=== PATIENT | male | born 1955 | race American Indian/Alaskan Native ===

== ENCOUNTER 2016-12-14 07:58 | Day surgery (SDC) | payer MEDICARE ==
[2016-12-14 08:54] LABS: Hematocrit 34.7 % (35.5-45.6); Hemoglobin 11.7 gm/dl (11.8-15.2); Mean Corpuscular HGB Conc 34 % (32-34); Mean Corpuscular Hemoglobin 29 pg (28-32); Mean Corpuscular Volume 86 fl (84-94); Platelet Count 317 K/mm3 (140-440); Red Blood Count 4.06 M/mm3 (3.65-5.03); Red Cell Distribution Width 14.6 % (13.2-15.2); White Blood Count 6.1 K/mm3 (4.5-11.0)
[2016-12-14 09:05] LABS: BUN/Creatinine Ratio 10.45; Calcium 7.9 mg/dL (8.4-10.2); Chloride 106.7 mmol/L (98-107); Potassium 4.2 mmol/L (3.6-5.0)
[2016-12-14 09:25] LABS: INR 1.04 (0.87-1.13); Partial Thromboplastin Time 32.9 Sec. (24.2-36.6)
[2016-12-14] MEDS ORDERED: SUBLIMAZE IV ONE (09:26)
[2016-12-14] MEDS ORDERED: VERSED IV ONE (09:26)
--- NOTE | 2016-12-14 10:56 | Short Stay Summary ---
Short Stay Documentation Date of service: 12/14/16 - History Principal diagnosis: Nephrotic syndrome Past Medical History: hypertension - Allergies and Medications Current Medications: Allergies No Known Allergies Allergy (Verified 08/15/15 05:03) Home Medications Medication Instructions Recorded Confirmed Last Taken Type Furosemide [Lasix TAB] 80 mg PO DAILY 12/14/16 12/14/16 12/14/16 History Metoprolol [Lopressor TAB] 25 mg PO BID 12/14/16 12/14/16 12/14/16 History Simvastatin [Zocor TAB] 20 mg PO QHS 12/14/16 12/14/16 12/14/16 History amLODIPine [Norvasc] 10 mg PO DAILY 12/14/16 12/14/16 12/14/16 History - Physical exam General appearance: no acute distress - Brief post op/procedure progress note Date of procedure: 12/14/16 Pre-op diagnosis: Nephrotic syndrome Post-op diagnosis: same Anesthesia: local Surgeon: RANI WALKER Estimated blood loss: none Specimen disposition: to lab Condition: stable - Disposition Condition at discharge: Good Disposition: DISCHARGED TO HOME OR SELFCARE Short Stay Discharge Plan Follow up with: JOHN PAUL CACERES MD [Primary Care Provider] - 7 Days
--- NOTE | 2016-12-14 12:14 | Cat Scan Report ---
CT-GUIDED BIOPSY OF THE RIGHT KIDNEY: HISTORY: Nephrotic syndrome. PROCEDURE: The patient was placed in the prone position. The skin surface overlying the right flank was prepped and draped using sterile technique. Local anesthetic was injected into the skin. Using CT guidance, a 17-gauge sheath needle was advanced into the lower pole cortex of the right kidney. 2 passes were made using an 18-gauge biopsy gun. Adequate tissue cores were obtained. Intravenous conscious sedation was used. Independent cardiorespiratory monitoring was performed by the outpatient procedure nurse for 10 minutes, supervised by me. Postbiopsy images demonstrate no evidence of significant hemorrhage. The patient was sent to the outpatient procedure unit to be observed for 8 hours with complete bed rest.
[2016-12-14 16:57] VITALS: BP 144/87
== END 2016-12-14 17:10 | disposition home or self-care (01) ==
LOC: OPU 07:58 → EDSTATUS 08:30 → OPU 17:10
PROVIDERS: ATTEND Internal Medicine Nephrology
DX: N04.9 Nephrotic syndrome with unspecified morphologic changes (principal); I10 Essential (primary) hypertension; E78.5 Hyperlipidemia, unspecified; M06.9 Rheumatoid arthritis, unspecified; Z87.891 Personal history of nicotine dependence; Z72.89 Other problems related to lifestyle; Z79.899 Other long term (current) drug therapy
CPT/HCPCS: 36415; 50200; 77012; 80048; 85027; 85610; 85730; J2250; J3010

== ENCOUNTER 2017-09-22 08:26 | Outpatient (CLI) | payer MEDICARE ==
[2017-09-22 08:41] LABS: Bilirubin,Urine NEG (Negative); Blood,Urine NEG (Negative); Ketones,Urine NEG (Negative); Leukocyte Esterase,Urine NEG (Negative); Nitrite,Urine NEG (Negative); Urobilinogen,Urine < 2.0 mg/dL (<2.0)
[2017-09-22 08:47] LABS: Protein,Urine >500 mg/dL (Negative)
[2017-09-22 08:52] LABS: Calcium 7.2 mg/dL (8.4-10.2); Chloride 107.9 mmol/L (98-107); Potassium 4.2 mmol/L (3.6-5.0)
== END 2017-09-22 08:27 | disposition home or self-care (01) ==
LOC: LAB 08:26
PROVIDERS: ATTEND Internal Medicine Nephrology
DX: I12.9 Hypertensive chronic kidney disease with stage 1 through stage 4 chronic kidney disease, or unspecified chronic kidney disease (principal); N18.4 Chronic kidney disease, stage 4 (severe)
CPT/HCPCS: 36415; 80048; 81001; 82570; 84156

== ENCOUNTER 2018-02-16 09:22 | Outpatient (CLI) | payer MEDICARE ==
[2018-02-16 09:43] LABS: Bilirubin,Urine NEG (Negative); Blood,Urine NEG (Negative); Color,Urine Straw (Yellow); Urobilinogen,Urine < 2.0 mg/dL (<2.0)
[2018-02-16 09:45] LABS: Hematocrit 33.5 % (35.5-45.6); Hemoglobin 11.3 gm/dl (11.8-15.2); Mean Corpuscular HGB Conc 34 % (32-34); Mean Corpuscular Hemoglobin 30 pg (28-32); Mean Corpuscular Volume 88 fl (84-94); Platelet Count 207 K/mm3 (140-440); Red Blood Count 3.82 M/mm3 (3.65-5.03); Red Cell Distribution Width 13.5 % (13.2-15.2)
[2018-02-16 10:09] LABS: Albumin 3.1 g/dL (3.9-5); Calcium 8.2 mg/dL (8.4-10.2); Chol/HDL Ratio 2.53 %
== END 2018-02-16 09:23 | disposition home or self-care (01) ==
LOC: LAB 09:22
PROVIDERS: ATTEND Internal Medicine
DX: I12.9 Hypertensive chronic kidney disease with stage 1 through stage 4 chronic kidney disease, or unspecified chronic kidney disease (principal); N18.4 Chronic kidney disease, stage 4 (severe); E11.22 Type 2 diabetes mellitus with diabetic chronic kidney disease; E11.65 Type 2 diabetes mellitus with hyperglycemia; E78.2 Mixed hyperlipidemia; E55.9 Vitamin D deficiency, unspecified; N40.1 Benign prostatic hyperplasia with lower urinary tract symptoms; R53.83 Other fatigue; Z87.891 Personal history of nicotine dependence
CPT/HCPCS: 36415; 80053; 80061; 80197; 81001; 82306; 83036; 84100; 84443; 85027; 86592

== ENCOUNTER 2018-04-24 09:26 | Outpatient (CLI) | payer MEDICARE ==
[2018-04-24 10:17] LABS: Albumin 3.3 g/dL (3.9-5); Calcium 8.8 mg/dL (8.4-10.2)
== END 2018-04-24 09:27 | disposition home or self-care (01) ==
LOC: LAB 09:26
PROVIDERS: ATTEND Internal Medicine Nephrology
DX: I12.9 Hypertensive chronic kidney disease with stage 1 through stage 4 chronic kidney disease, or unspecified chronic kidney disease (principal); E11.22 Type 2 diabetes mellitus with diabetic chronic kidney disease; N18.4 Chronic kidney disease, stage 4 (severe); E11.65 Type 2 diabetes mellitus with hyperglycemia; E78.2 Mixed hyperlipidemia; E78.00 Pure hypercholesterolemia, unspecified; M19.90 Unspecified osteoarthritis, unspecified site; Z87.891 Personal history of nicotine dependence
CPT/HCPCS: 36415; 80048; 82040; 83970; 84100

== ENCOUNTER 2018-06-01 09:01 | Outpatient (CLI) | payer MEDICARE ==
[2018-06-01 09:25] LABS: Basophils # (Auto) 0.1 K/mm3 (0.0-0.1); Basophils % (Auto) 1.4 % (0.0-1.8); Eosinophils # (Auto) 0.2 K/mm3 (0.0-0.4); Eosinophils % (Auto) 3.3 % (0.0-4.3); Hematocrit 33.5 % (35.5-45.6); Hemoglobin 11.3 gm/dl (11.8-15.2); Lymphocytes % (Auto) 29.6 % (13.4-35.0); Mean Corpuscular HGB Conc 34 % (32-34); Mean Corpuscular Hemoglobin 30 pg (28-32); Mean Corpuscular Volume 88 fl (84-94); Monocytes # (Auto) 0.6 K/mm3 (0.0-0.8); Monocytes % (Auto) 8.9 % (0.0-7.3); Platelet Count 268 K/mm3 (140-440); Red Blood Count 3.83 M/mm3 (3.65-5.03); Red Cell Distribution Width 13.2 % (13.2-15.2)
[2018-06-01 09:45] LABS: Calcium 8.9 mg/dL (8.4-10.2)
== END 2018-06-01 09:02 | disposition home or self-care (01) ==
LOC: LAB 09:01
PROVIDERS: ATTEND Internal Medicine Nephrology
DX: I12.9 Hypertensive chronic kidney disease with stage 1 through stage 4 chronic kidney disease, or unspecified chronic kidney disease (principal); N18.4 Chronic kidney disease, stage 4 (severe); E78.5 Hyperlipidemia, unspecified; E78.00 Pure hypercholesterolemia, unspecified; M10.9 Gout, unspecified; Z87.891 Personal history of nicotine dependence
CPT/HCPCS: 36415; 80048; 80197; 84100; 85025

== ENCOUNTER 2018-07-17 05:51 | Day surgery (SDC) | payer MEDICARE ==
[2018-07-17] MEDS ORDERED: ANCEF/STERILE WATER 2 GM/20 ML 2 GM/20 ML SYRINGE IV NR (06:00)
[2018-07-17] MEDS ORDERED: NACL 0.9% 1000 ML 1,000 ML IV SCH (06:00)
[2018-07-17 06:55] LABS: Basophils # (Auto) 0.1 K/mm3 (0.0-0.1); Basophils % (Auto) 0.7 % (0.0-1.8); Eosinophils # (Auto) 0.2 K/mm3 (0.0-0.4); Eosinophils % (Auto) 2.5 % (0.0-4.3); Hematocrit 31.5 % (35.5-45.6); Hemoglobin 10.9 gm/dl (11.8-15.2); Lymphocytes # (Auto) 1.8 K/mm3 (1.2-5.4); Lymphocytes % (Auto) 24.1 % (13.4-35.0); Mean Corpuscular HGB Conc 35 % (32-34); Mean Corpuscular Hemoglobin 30 pg (28-32); Mean Corpuscular Volume 87 fl (84-94); Monocytes # (Auto) 0.7 K/mm3 (0.0-0.8); Monocytes % (Auto) 9.5 % (0.0-7.3); Platelet Count 289 K/mm3 (140-440); Red Blood Count 3.64 M/mm3 (3.65-5.03); Red Cell Distribution Width 14.5 % (13.2-15.2)
[2018-07-17 07:07] LABS: Calcium 8.6 mg/dL (8.4-10.2)
[2018-07-17] MEDS ORDERED: DIPRIVAN 10 MG/ML IV ONE (07:22)
[2018-07-17] MEDS ORDERED: XYLOCAINE MPF 2% ONE (07:22)
[2018-07-17] MEDS ORDERED: DILAUDID ONE (07:24)
[2018-07-17] MEDS ORDERED: ZOFRAN ONE (07:25)
--- NOTE | 2018-07-17 07:29 | Anesthesia Day of Surgery ---
Anesthesia Day of Surgery - Day of Surgery Patient Examined: Yes Patient H&P Reviewed: Yes Patient is NPO: Yes
--- NOTE | 2018-07-17 07:33 | Anesthesia Consultation ---
Anesthesia Consult and Med Hx Date of service: 07/17/18 - Airway Anesthetic Teeth Evaluation: Poor (multiple missing and chipped) ROM Head & Neck: Adequate Mental/Hyoid Distance: Adequate Mallampati Class: Class II Intubation Access Assessment: Probably Good - Pulmonary Exam CTA: Yes - Cardiac Exam Cardiac Exam: RRR - Pre-Operative Health Status ASA Pre-Surgery Classification: ASA3 Proposed Anesthetic Plan: General - Pulmonary Hx Smoking: Yes (Former) Hx Asthma: No COPD: No Hx Pneumonia: No - Cardiovascular System Hx Hypertension: Yes (x 10yrs. HL) Hx Angina: Yes - Central Nervous System CVA: Yes (Years ago) Hx Psychiatric Problems: No - Endocrine Hx End Stage Renal Disease: Yes (Dialysed yesterday, MWF.) - Hematic Hx Anemia: Yes - Other Systems Hx Cancer: No - Additional Comments Anesthesia Medical History Comments: OA.
[2018-07-17] MEDS ORDERED: HEPARIN 10,000 UNITS/10 ML ONE (07:39)
[2018-07-17] MEDS ORDERED: PROTAMINE SULFATE ONE (07:39)
[2018-07-17] MEDS ORDERED: MARCAINE 0.5% INFILTRATI ONE ×2 (07:39→09:19)
[2018-07-17] MEDS ORDERED: NACL 0.9% 250ML 250 ML ONE (07:40)
[2018-07-17] MEDS ORDERED: SUBLIMAZE IV PRN (08:38)
[2018-07-17] MEDS ORDERED: DECADRON ONE (08:51)
[2018-07-17] MEDS ORDERED: NACL 0.9% IR ONE (09:19)
[2018-07-17] MEDS ORDERED: HEPARIN 10,000 UNITS/10 ML 1,000 UNIT in NACL 0.9% 250ML 250 ML IR ONE (09:20)
--- NOTE | 2018-07-17 10:39 | Short Stay Summary ---
Short Stay Documentation Date of service: 07/17/18 Narrative H&P: See H&P - History H&P: obtained from office - Allergies and Medications Current Medications: Allergies No Known Allergies Allergy (Verified 07/16/18 09:04) Home Medications Medication Instructions Recorded Confirmed Last Taken Type Acetaminophen [Acetaminophen TAB] 650 mg PO Q4H PRN #15 tablet 06/14/18 Unknown Rx Carvedilol [Coreg] 12.5 mg PO BID #60 tablet 06/14/18 07/16/18 Unknown Rx Cholecalciferol (Vitamin D3) 2,000 unit PO QDAY #30 capsule 06/14/18 07/16/18 Unknown Rx [Vitamin D3 2,000 unit] Furosemide [Lasix TAB] 80 mg PO DAILY #60 tablet 06/14/18 07/16/18 Unknown Rx Simvastatin [Zocor TAB] 20 mg PO QHS #30 06/14/18 07/16/18 12/14/16 Rx Tacrolimus [Prograf] 1 mg PO BID #60 06/14/18 07/16/18 Unknown Rx amLODIPine [Norvasc] 10 mg PO DAILY #30 tablet 06/14/18 07/16/18 Unknown Rx Active Medications Fentanyl (Sublimaze) 50 mcg IV Q15MIN PRN PRN Reason: Pain , Severe (7-10) Stop: 07/17/18 22:00 Cefazolin Sodium (Ancef/Sterile Water 2 Gm/20 Ml) 2 gm in 20 mls @ 80 mls/hr IV PREOP NR; Protocol Stop: 07/17/18 23:59 Sodium Chloride (Nacl 0.9% 1000 Ml) 1,000 mls @ 42 mls/hr IV DIRECT BERNARDO - Brief post op/procedure progress note Date of procedure: 07/17/18 Pre-op diagnosis: End Stage Renal Disease Post-op diagnosis: same Procedure: Creation of Left Radial Artery to Cephalic Vein (Omar) Arteriovenous Fistula Anesthesia: GETA Surgeon: GERMANIA HUBBARD Estimated blood loss: minimal Pathology: none Condition: stable - Disposition Condition at discharge: Good Disposition: DC-01 TO HOME OR SELFCARE Short Stay Discharge Plan Activity: other (No heavy lifting with left arm) Wound: open to air, keep clean and dry, other (Okay to wash the wound with soap and water but do not soak in water) Follow up with: GERMANIA HUBBARD MD [Staff Physician] - 14 Days Prescriptions: HYDROcodone/APAP 7.5-325 [[place] 7.5/325] 1 each PO Q6HR PRN #40 tablet PRN Reason: Pain
--- NOTE | 2018-07-17 11:23 | Operative Report ---
Operative Report Operative Report: Date of procedure: 07/17/2018 Pre-operative diagnosis: End-Stage Renal Disease Post-operative diagnosis: End-Stage Renal Disease Procedure(s): Creation of Left Omar Fistula Surgeon: Ion De MD General Internist: None Anesthesia: General Endotracheal Anesthesia EBL: Minimal Counts: Correct Complications: None Condition: Stable Findings: Successful creation of left arm AV fistula Specimen: None Indication: The patient is a 62-year-old male with a history of end-stage renal disease who is currently on hemodialysis to right internal jugular permacath. He is in need of long-term dialysis access and an vein mapping demonstrated was an adequate candidate for creation of a radiocephalic arteriovenous fistula. He was given risks, benefits, and alternative procedures and consented to the procedure. Description of Procedure: The patient was brought to the operating room and laid in supine position after general endotracheal anesthesia was achieved his left arm was prepped and draped in normal sterile fashion. Longitudinal incision was then created on the distal wrist centered over the cephalic vein and a second incision was created in longitudinal fashion over the radial artery. The radial artery was dissected out circumferentially and controlled with vessel loops. The cephalic vein was then dissected out circumferentially, ligating side branches and dividing them, and then a tunnel was created to transpose it over to the radial artery. A 3 Tahira was then advanced through the cephalic vein proximally to ensure patency. The vein was then flushed with heparinized saline and control of the bulldog clamp. The radial artery vessel loops were put on tension occluding flow, and then an 11 blade and Kirk scissors used to create an arteriotomy. An byag-ky-bewu anastomosis created between the cephalic vein and the radial artery using a single 6-0 Prolene in running fashion. Prior to completing the anastomosis I flushed the artery both retrograde and antegrade and advanced a 3 Tahira into the proximal portion of the artery to break the spasm. I then completed the anastomosis and removed all clamps allowing flow into the fistula which had an excellent thrill. I anesthetized wound using 0.5 % Marcaine plain. Then closed the wounds in 2 layers using a 3-0 Vicryl running fashion the deep dermal layer, 4-0 Monocryl in a running fashion the subcuticular layer, and Surgicel as a dressing. The patient tolerated the procedure well, all sponge needle asthma counts correct, the patient was taken to recovery in stable condition.
--- NOTE | 2018-07-17 14:03 | Post Anesthesia Evaluation ---
- Post Anesthesia Evaluation Patient Participated: Yes Airway Patent: Yes Stable Respiratory Function: Yes Nausea/Vomiting: No Temp > 96.8F: Yes Pain Manageable: Yes Adequeate Hydration: Yes Anesthesia Complications: No
[2018-07-17 14:04] VITALS: BP 115/71
== END 2018-07-17 13:48 | disposition home or self-care (01) ==
LOC: OR 05:51
PROVIDERS: ATTEND Surgery Vascular Surgery
DX: E11.22 Type 2 diabetes mellitus with diabetic chronic kidney disease (principal); I12.0 Hypertensive chronic kidney disease with stage 5 chronic kidney disease or end stage renal disease; N18.6 End stage renal disease; N25.81 Secondary hyperparathyroidism of renal origin; E78.00 Pure hypercholesterolemia, unspecified; M19.90 Unspecified osteoarthritis, unspecified site; M10.9 Gout, unspecified; Z99.2 Dependence on renal dialysis; Z79.899 Other long term (current) drug therapy; Z87.891 Personal history of nicotine dependence; Z86.73 Personal history of transient ischemic attack (TIA), and cerebral infarction without residual deficits; Z98.890 Other specified postprocedural states
CPT/HCPCS: 36415; 36821; 80048; 85025; J1100; J1170; J1644; J2405; J2704; J2720; J7030; J7050

== ENCOUNTER 2022-01-11 05:45 | Day surgery (SDC) | payer MEDICARE ==
[2022-01-11] MEDS ORDERED: SODIUM CHLORIDE 0.9% 1000 ML 1,000 ML IV SCH (06:00)
[2022-01-11] MEDS ORDERED: ceFAZolin/STERILE WATER 2 GM/20 ML SYRINGE IV NR (06:00)
[2022-01-11 07:05] LABS: Hematocrit 31.1 % (35.5-45.6); Hemoglobin 10.2 gm/dl (11.8-15.2); Mean Corpuscular HGB Conc 33 % (32-34); Mean Corpuscular Volume 84 fl (84-94); Platelet Count 199 K/mm3 (140-440); Red Blood Count 3.73 M/mm3 (3.65-5.03); Red Cell Distribution Width 14.9 % (13.2-15.2)
[2022-01-11 07:20] LABS: Calcium 8.1 mg/dL (8.4-10.2)
[2022-01-11] MEDS ORDERED: HEPARIN 10,000 UNITS/10 ML VIAL ONE (07:35)
[2022-01-11] MEDS ORDERED: SODIUM CHLORIDE 0.9% 250ML 0 ML ONE (07:36)
[2022-01-11] MEDS ORDERED: BUPIVACAINE/PF (0.25%) 2.5 MG/ML 30 ML VIAL INFILTRATI ONE ×2 (07:36→09:02)
[2022-01-11] MEDS ORDERED: fentaNYL 100 MCG/2 ML INJ ONE (07:41)
[2022-01-11] MEDS ORDERED: ROCURONIUM 50 MG/5 ML INJ IV ONE (07:41)
[2022-01-11] MEDS ORDERED: LIDOCAINE MPF (2%) 20 MG/1 ML VIAL 5 ML ONE (07:41)
[2022-01-11] MEDS ORDERED: ONDANSETRON 4 MG/2 ML INJ ONE (07:41)
[2022-01-11] MEDS ORDERED: propofoL 200 MG/20 ML VIAL IV ONE (07:42)
[2022-01-11] MEDS ORDERED: MIDAZOLAM 2 MG/2 ML INJ ONE (07:57)
--- NOTE | 2022-01-11 07:57 | Anesthesia Consultation ---
Anesthesia Consult and Med Hx Date of service: 01/11/22 - Airway Anesthetic Teeth Evaluation: Good ROM Head & Neck: Adequate Mental/Hyoid Distance: Adequate Mallampati Class: Class III Intubation Access Assessment: Possibly Difficult - Pre-Operative Health Status ASA Pre-Surgery Classification: ASA3 Proposed Anesthetic Plan: General - Pulmonary Hx Smoking: Yes (remote hx) Hx Respiratory Symptoms: No Hx Sleep Apnea: No (ESTELLA PRESCREEN HIGH RISK) - Cardiovascular System Hx Hypertension: Yes (will give home dose antihypertensives in preop) Hx Heart Attack/AMI: No Hx Percutaneous Transluminal Coronary Angioplasty (PTCA): No - Central Nervous System CVA: No - Endocrine Hx Renal Disease: Yes (CKD V) Hx End Stage Renal Disease: Yes (previously on HD years ago, not yet restarted) Hx Insulin Dependent Diabetes: No Hx Thyroid Disease: No - Hematic Hx Anemia: Yes - Other Systems Hx Obesity: Yes (BMI 33) - Additional Comments Anesthesia Medical History Comments: No hx anesthetic complications.
--- NOTE | 2022-01-11 07:58 | Anesthesia Day of Surgery ---
Anesthesia Day of Surgery - Day of Surgery Patient Examined: Yes Patient H&P Reviewed: Yes Patient is NPO: Yes Beta Blockers: Yes
[2022-01-11] MEDS ORDERED: HYDROcodone/ACETAMINOPHEN 5-325 MG TAB PO PRN (08:00)
[2022-01-11] MEDS ORDERED: fentaNYL 100 MCG/2 ML INJ IV PRN (08:00)
[2022-01-11] MEDS ORDERED: amLODIPine 10 MG TAB PO SCH (08:00)
[2022-01-11] MEDS ORDERED: carvediloL 12.5 MG TAB PO SCH (08:00)
[2022-01-11] MEDS ORDERED: LIDOCAINE (1%) 10 MG/1 ML VIAL 20 ML MDV ONE (08:00)
[2022-01-11] MEDS ORDERED: ePHEDrine SULFATE 50 MG/1 ML INJ ONE (08:54)
[2022-01-11] MEDS ORDERED: HEPARIN 10,000 UNITS/10 ML VIAL IR ONE (09:02)
[2022-01-11] MEDS ORDERED: LIDOCAINE (1%) 10 MG/1 ML VIAL 20 ML MDV INFILTRATI ONE (09:03)
[2022-01-11] MEDS ORDERED: SODIUM CHLORIDE 0.9% IRR 1,500 ML BOTTLE IR ONE (09:03)
[2022-01-11] MEDS ORDERED: SODIUM CHLORIDE 0.9% 1000 ML IV SOLN IR ONE (10:03)
--- NOTE | 2022-01-11 10:29 | Short Stay Summary ---
Short Stay Documentation Date of service: 01/11/22 - History Principal diagnosis: esrd H&P: obtained from office - Allergies and Medications Current Medications: Allergies No Known Allergies Allergy (Verified 08/20/18 13:43) Home Medications Medication Instructions Recorded Confirmed Last Taken Type amLODIPine 10 mg PO DAILY #30 tablet 06/14/18 01/11/22 01/11/22 08:05 Rx [place]-3/Dha/Epa/Fish Oil [Fish Oil 1,000 mg PO DAILY 03/27/20 01/11/22 04/07/20 04:30 History 500 mg Softgel] carvediloL [Coreg] 12.5 mg PO DAILY 03/27/20 01/11/22 01/11/22 08:05 History HYDROcodone/APAP 5-325 [[place] 1 each PO Q6HR PRN #15 tablet 04/07/20 01/11/22 01/10/22 Rx 5/325] Colchicine [Colcrys] 0.6 mg PO DAILY 01/05/22 01/05/22 Unknown History Vitamin D3 1 dose PO 1XW 01/05/22 01/05/22 Unknown History Active Medications Hydrocodone Bitart/Acetaminophen (Hydrocodone/Acetaminophen 5-325 Mg Tab) 2 each PO ONCE PRN PRN Reason: Pain, Moderate (4-6) Stop: 01/11/22 18:00 Amlodipine Besylate (Amlodipine 10 Mg Tab) 10 mg PO PREOP BERNARDO Stop: 01/11/22 12:00 Last Admin: 01/11/22 08:05 Dose: 10 mg Carvedilol (Carvedilol 12.5 Mg Tab) 12.5 mg PO PREOP BERNARDO Stop: 01/11/22 14:00 Last Admin: 01/11/22 08:05 Dose: 12.5 mg Cefazolin Sodium (Cefazolin/Sterile Water 2 Gm/20 Ml Syringe) 2 gm IV PREOP NR Stop: 01/11/22 21:00 Fentanyl (Fentanyl 100 Mcg/2 Ml Inj) 50 mcg IV Q5MIN PRN PRN Reason: Pain , Severe (7-10) Stop: 01/11/22 17:00 Sodium Chloride (Nacl 0.9% 1000 Ml) 1,000 mls @ 42 mls/hr IV DIRECT BERNARDO Stop: 01/11/22 23:59 Last Admin: 03/29/22 06:57 Dose: 42 mls/hr - Brief post op/procedure progress note Date of procedure: 01/11/22 Pre-op diagnosis: esrd Post-op diagnosis: same Procedure: Laparoscopic placement of peritoneal dialysis catheter Anesthesia: GETA, local Findings: Good placement of PD cath. Surgeon: TONYA DAVIS Manager Of Employee Relations: MORGAN CERVANTES Estimated blood loss: minimal Pathology: none Specimen disposition: to lab Condition: stable - Hospital course Hospital course: Pt observed in PACU and discharged to home in stable condition - Disposition Condition at discharge: Good Disposition: 01 HOME / SELF CARE / HOMELESS Short Stay Discharge Plan Activity: other (no heavy lifting x 2 weeks) Diet: regular Wound: open to air, per your surgeon's advice (leave outer dressing over PD catheter until seen by PD RN) Additional Instructions: SEE PRINTED INSTRUCTIONS Follow up with: JOHN PAUL CACERES MD [Primary Care Provider] - 7 Days Prescriptions: HYDROcodone/APAP 5-325 [[place] 5-325 mg TAB] 1 each PO Q6HR PRN #15 tablet PRN Reason: Pain, Moderate (4-6)
[2022-01-11 11:57] VITALS: BP 120/78
--- NOTE | 2022-01-11 13:47 | Operative Report ---
Operative Report Operative Report: Date of procedure: 01/11/22 Pre-op diagnosis: esrd Post-op diagnosis: same Procedure: Laparoscopic placement of peritoneal dialysis catheter Anesthesia: GETA, local Findings: Good placement of PD cath. Surgeon: TONYA DAVIS Gm: MORGAN CERVANTES Estimated blood loss: minimal Pathology: none Specimen disposition: to lab Condition: stable Hospital course: Pt observed in PACU and discharged to home in stable condition Condition at discharge: Good Disposition: 01 HOME / SELF CARE / HOMELESS HPI and indication: Patient is a 66-year-old male with end-stage renal disease who presented to the surgery clinic to be evaluated for placement of peritoneal dialysis catheter. In 2017 the patient had a PD catheter placed to start peritoneal dialysis. Over 2 years his kidney function improved significantly and he was taken off of dialysis. In 2019 his catheter was removed. Unfortunately over the last 1 year the patient is once again requiring dialysis. He prefers peritoneal dialysis which was discussed in detail between him and his residential energy auditor. All risks, benefits, alternatives to placement of peritoneal dialysis catheter were discussed with the patient. Consent was obtained for laparoscopic peritoneal dialysis catheter placement, possible open. Procedure in detail: The patient was identified in the preoperative area taken back to the operating room and placed on the operating room table in supine position. After anesthesia was induced the abdomen was prepped and draped in usual sterile fashion a timeout performed. A 57 cm peritoneal dialysis catheter was opened and used to jenny the appropriate location of the fascial cuff and subcutaneous cuff, along with the exit site of the catheter. These were essentially at the same locations of the patient's previous surgical scars. Local anesthetic was infiltrated into all skin incision sites. A dagoberto incision was made in the left upper quadrant at Hurst's point through which a Veress needle was inserted. The Veress needle position was confirmed using the saline drop test and the abdomen insufflated to 15 mmHg without incident. An incision was then made in the right upper quadrant through which a 5 mm Optiview trocar was placed. The abdomen was inspected and there was no underlying injury to the of the abdominal structures. The Veress needle was identified and removed. There were no adhesions to the anterior abdominal wall. An incision was then made through the patient's previous periumbilical scar and dissection carried down through the skin and subcutaneous tissue using Bovie electrocautery. Scar tissue was dissected until the anterior fascia was encountered. This was dissected with cautery until the muscle was identified. The muscle was spread with a hemostat and a preperitoneal plane developed. Under direct laparoscopic visualization an 8 mm trocar was placed through this incision and into the preperitoneal space. This was tunneled approximately 3 to 4 cm and then brought out through the peritoneum into the abdominal cavity. The peritoneal dialysis catheter was then placed through this trocar in the usual fashion and directed towards the pelvis. The catheter was placed in the retrocystic position without difficulty. The distal cuff was pulled back slightly in order to position it in the preperitoneal space. The catheter was then tested. The abdomen was desufflated and 800 cc of heparinized saline was instilled through the catheter. It flowed very easily without resistance. I then drained approximately 500 cc of the fluid out of the abdomen by attaching the catheter to a gravity bag. The fluid drained out easily without resistance. We reinsufflated the abdomen and the catheter was seen to sit in the appropriate position. The abdomen was then desufflated. The 5 mm port was removed. An incision was made at the catheter exit site in the left mid abdomen. Using a Irena-Wick tunneler, the catheter was tunneled in the subcutaneous space and brought out through the exit site. The catheter was ensured not to twist during the process. The subcutaneous cuff was ensured to be in the subcutaneous space. The connectors and gis consultant were then connected to the catheter and a tap with iodine secured to the end of the gis consultant. An 0 Vicryl stitch was used to gently close the fascia. The subcutaneous tissue was closed with 3-0 Vicryl interrupted stitches. The skin incisions were closed with 4-0 Monocryl subcuticular stitches and skin glue. All incisions were once again infiltrated with local anesthetic. A Biopatch was applied around the catheter exit site. This was covered with a drain sponge and secured with Tegaderm. The gis consultant tubing was wrapped and secured to the abdominal wall using Medipore tape. At the end of the case all sponge, instrument, sharp counts were correct x2. The patient was awoken from anesthesia and taken to PACU in stable condition. Patient's was updated
== END 2022-01-11 11:30 | disposition home or self-care (01) ==
LOC: OR 05:45
PROVIDERS: ATTEND Surgery
DX: I12.0 Hypertensive chronic kidney disease with stage 5 chronic kidney disease or end stage renal disease (principal); N18.6 End stage renal disease; E78.5 Hyperlipidemia, unspecified; G43.909 Migraine, unspecified, not intractable, without status migrainosus; E66.9 Obesity, unspecified; M19.90 Unspecified osteoarthritis, unspecified site; D64.9 Anemia, unspecified; Z79.899 Other long term (current) drug therapy; Z72.89 Other problems related to lifestyle; Z87.891 Personal history of nicotine dependence; Z98.890 Other specified postprocedural states
CPT/HCPCS: 36415; 49324; 80048; 85027; C1750; J0690; J1644; J2250; J2405; J2704; J3010; J3490; J7030; J7120; Q0162; J7050

== ENCOUNTER 2022-04-10 05:44 | Emergency (ER) | payer MEDICARE ==
--- NOTE | 2022-04-10 12:32 | Vascular Lab Report ---
DUPLEX DOPPLER LOWER EXTREMITY VEINS, LEFT INDICATION: left leg swelling. TECHNIQUE: Duplex doppler imaging was performed through the veins of the left lower extremity using venous compr ession and other maneuvers. COMPARISON: None available. FINDINGS: Common Femoral vein: Negative. Superficial Femoral vein: Negative. Popliteal vein: Negative. Calf veins: Negative. Additional findings: Subcutaneous edema of the left lower extremity is present.. IMPRESSION: 1. No sonographic evidence for DVT in the left lower extremity. Signer Name: Rudy Neumann MD Signed: 04/10/2022 12:28 PM Workstation Name: [employer]
[2022-04-10 12:46] LABS: Basophils # (Auto) 0.1 K/mm3 (0.0-0.1); Basophils % (Auto) 1.4 % (0.0-1.8); Eosinophils # (Auto) 0.2 K/mm3 (0.0-0.4); Eosinophils % (Auto) 4.4 % (0.0-4.3); Hematocrit 36.5 % (35.5-45.6); Lymphocytes # (Auto) 0.8 K/mm3 (1.2-5.4); Lymphocytes % (Auto) 15.7 % (13.4-35.0); Mean Corpuscular HGB Conc 33 % (32-34); Mean Corpuscular Volume 81 fl (84-94); Monocytes # (Auto) 0.7 K/mm3 (0.0-0.8); Monocytes % (Auto) 13.6 % (0.0-7.3); Platelet Count 396 K/mm3 (140-440); Red Cell Distribution Width 15.5 % (13.2-15.2)
[2022-04-10 13:12] LABS: Albumin 2.1 g/dL (3.9-5); Calcium 7.9 mg/dL (8.4-10.2)
[2022-04-10] MEDS ORDERED: POTASSIUM CHLORIDE ER 20 MEQ TAB PO ONE (13:48)
--- NOTE | 2022-04-10 13:49 | Emergency Department Report ---
ED Lower Extremity HPI - General Chief Complaint: Extremity Injury, Lower Stated Complaint: LEG PAIN Time Seen by Provider: 04/10/22 11:18 Source: patient Mode of arrival: Ambulatory Limitations: No Limitations - History of Present Illness Initial Comments: This is a 66-year-old male nontoxic, well nourished in appearance, no acute signs of distress presents to the ED with c/o of bilateral leg swelling left greater than right and left leg pain as well. Denies any right leg pain. Patient does have history of end-stage renal disease and is currently on dialysis which she stated is up-to-date with he does at home. Patient otherwise denies any other symptoms or complaints. Denies any chest pain, shortness of breath, fever, chills, nausea, vomiting, headache or stiff neck. -: days(s) Severity scale (0 -10): 3 Associated Symptoms: swelling, able to partially bear weight. denies: snap/pop sensation, numbness, tingling, unable to bear weight - Related Data Home Medications Medication Instructions Recorded Confirmed Last Taken [place]-3/Dha/Epa/Fish Oil [Fish Oil 1,000 mg PO DAILY 03/27/20 01/11/22 04/07/20 04:30 500 mg Softgel] carvediloL [Coreg] 12.5 mg PO DAILY 03/27/20 01/11/22 01/11/22 08:05 Colchicine [Colcrys] 0.6 mg PO DAILY 01/05/22 01/05/22 Unknown Vitamin D3 1 dose PO 1XW 01/05/22 01/05/22 Unknown Previous Rx's Medication Instructions Recorded Last Taken Type amLODIPine 10 mg PO DAILY #30 tablet 06/14/18 01/11/22 08:05 Rx HYDROcodone/APAP 5-325 [[place] 1 each PO Q6HR PRN #15 tablet 04/07/20 01/10/22 Rx 5/325] HYDROcodone/APAP 5-325 [[place] 1 each PO Q6HR PRN #15 tablet 01/11/22 Unknown Rx 5-325 mg TAB] Compression Socks, X-Large 1 each MC DAILY #1 each 04/10/22 Unknown Rx [Compression Socks] Allergies Allergy/AdvReac Type Severity Reaction Status Date / Time No Known Allergies Allergy Verified 04/10/22 06:22 ED Review of Systems ROS: Stated complaint: LEG PAIN Other details as noted in HPI Comment: All other systems reviewed and negative Constitutional: denies: chills, fever Eyes: denies: eye pain, eye discharge, vision change ENT: denies: ear pain, throat pain Respiratory: denies: cough, shortness of breath, wheezing Cardiovascular: denies: chest pain, palpitations Endocrine: no symptoms reported Gastrointestinal: denies: abdominal pain, nausea, diarrhea Genitourinary: denies: urgency, dysuria Musculoskeletal: denies: back pain, joint swelling, arthralgia Skin: denies: rash, lesions Neurological: denies: headache, weakness, paresthesias Psychiatric: denies: anxiety, depression Hematological/Lymphatic: denies: easy bleeding, easy bruising ED Past Medical Hx - Past Medical History Previous Medical History?: Yes Hx Hypertension: Yes (will give home dose antihypertensives in preop) Hx Heart Attack/AMI: No Hx Congestive Heart Failure: No Hx Diabetes: No Hx GERD: No Hx Renal Disease: Yes (CKD V) Hx Sickle Cell Disease: No Hx Arthritis: Yes (JOINT PAIN) Hx Headaches / Migraines: Yes (MIGRAINES) Hx Tuberculosis: No Hx HIV: No Additional medical history: high cholest,GOUT - Surgical History Past Surgical History?: Yes Additional Surgical History: cyst r) wrist - Social History Smoking Status: Never Smoker Substance Use Type: None - Medications Home Medications: Home Medications Medication Instructions Recorded Confirmed Last Taken Type amLODIPine 10 mg PO DAILY #30 tablet 06/14/18 01/11/22 01/11/22 08:05 Rx [place]-3/Dha/Epa/Fish Oil [Fish Oil 1,000 mg PO DAILY 03/27/20 01/11/22 04/07/20 04:30 History 500 mg Softgel] carvediloL [Coreg] 12.5 mg PO DAILY 03/27/20 01/11/22 01/11/22 08:05 History HYDROcodone/APAP 5-325 [[place] 1 each PO Q6HR PRN #15 tablet 04/07/20 01/11/22 01/10/22 Rx 5/325] Colchicine [Colcrys] 0.6 mg PO DAILY 01/05/22 01/05/22 Unknown History Vitamin D3 1 dose PO 1XW 01/05/22 01/05/22 Unknown History HYDROcodone/APAP 5-325 [[place] 1 each PO Q6HR PRN #15 tablet 01/11/22 Unknown Rx 5-325 mg TAB] Compression Socks, X-Large 1 each MC DAILY #1 each 04/10/22 Unknown Rx [Compression Socks] ED Physical Exam - General Limitations: No Limitations General appearance: alert, in no apparent distress - Head Head exam: Present: atraumatic, normocephalic - Eye Eye exam: Present: normal appearance - Neck Neck exam: Present: normal inspection, full ROM. Absent: lymphadenopathy - Respiratory Respiratory exam: Present: normal lung sounds bilaterally. Absent: respiratory distress, wheezes, rales, rhonchi, stridor, chest wall tenderness, accessory muscle use, decreased breath sounds, prolonged expiratory - Cardiovascular Cardiovascular Exam: Present: regular rate, normal rhythm, normal heart sounds. Absent: bradycardia, tachycardia, irregular rhythm, systolic murmur, diastolic murmur, rubs, gallop - GI/Abdominal GI/Abdominal exam: Present: soft. Absent: distended, tenderness - Extremities Exam Extremities exam: Present: full ROM, tenderness, normal capillary refill, pedal edema. Absent: calf tenderness - Expanded Lower Extremity Exam Left Hip exam: Present: normal inspection (bilateral exam), full ROM (bilateral exam). Absent: tenderness (bilateral exam), swelling Upper Leg exam: Present: normal inspection (bilateral exam), full ROM (bilateral exam). Absent: tenderness (bilateral exam), swelling Knee exam: Present: normal inspection, full ROM. Absent: tenderness, swelling Lower Leg exam: Present: full ROM, swelling. Absent: tenderness, abrasion, laceration, ecchymosis, deformity, crepidus, dislocation, erythema, palpable cord, Dereje's sign Ankle exam: Present: full ROM, swelling. Absent: tenderness, abrasion, laceration, ecchymosis, deformity, crepidus, dislocation, erythema, anterior draw sign Foot/Toe exam: Present: full ROM, swelling. Absent: tenderness, abrasion, laceration, ecchymosis, deformity, crepidus, dislocation, erythema, amputation, puncture wound, foreign body, calcaneal tenderness, tenderness at base of 5th metatarsal, nail avulsion, subungual hematoma Neuro vascular tendon exam: Present: no vascular compromise. Absent: pulse deficit, abnormal cap refill, motor deficit, sensory deficit, tendon deficit, extremity cold to touch, foot drop, significant pain with passive ROM of distal joint Gait: Positive: observed and normal - Back Exam Back exam: Present: full ROM - Neurological Exam Neurological exam: Present: alert, oriented X3 - Psychiatric Psychiatric exam: Present: normal affect, normal mood - Skin Skin exam: Present: warm, dry, intact, normal color. Absent: rash - Other Other exam information: 2+ bilateral pedal edema with left worse then right ED Course Vital Signs 04/10/22 04/10/22 04/10/22 06:19 12:00 14:16 Temperature 98.7 F Pulse Rate 61 80 Respiratory 18 18 Rate Blood Pressure 125/83 162/95 [Left] O2 Sat by Pulse 97 9 L 99 Oximetry 04/10/22 15:36 Temperature Pulse Rate 88 Respiratory 18 Rate Blood Pressure 115/69 [Left] O2 Sat by Pulse 99 Oximetry - Reevaluation(s) Reevaluation #1: 04/10/22 13:51 Patient is speaking in full sentences with no signs of distress noted. - Consultations Consultation #1: 04/10/22 14:37 Patient has been consulted with Dr. Bella about patient history, physical exam, and labs/imaging results and agrees to the ED plan of care and follow-up outpatient. ED Lower Extremity MDM - Lab Data Result diagrams: 04/10/22 12:28 04/10/22 12:28 Lab Results 04/10/22 04/10/22 04/10/22 Range/Units 12:28 12:28 12:28 WBC 4.8 (4.5-11.0) K/mm3 RBC 4.50 (3.65-5.03) M/mm3 Hgb 12.0 (11.8-15.2) gm/dl Hct 36.5 (35.5-45.6) % MCV 81 L (84-94) fl MCH 27 L (28-32) pg MCHC 33 (32-34) % RDW 15.5 H (13.2-15.2) % Plt Count 396 (140-440) K/mm3 Lymph % (Auto) 15.7 (13.4-35.0) % [place] % (Auto) 13.6 H (0.0-7.3) % Eos % (Auto) 4.4 H (0.0-4.3) % Baso % (Auto) 1.4 (0.0-1.8) % Lymph # (Auto) 0.8 L (1.2-5.4) K/mm3 [place] # (Auto) 0.7 (0.0-0.8) K/mm3 Eos # (Auto) 0.2 (0.0-0.4) K/mm3 Baso # (Auto) 0.1 (0.0-0.1) K/mm3 Seg Neutrophils % 64.9 (40.0-70.0) % Seg Neutrophils # 3.1 (1.8-7.7) K/mm3 Sodium 139 (137-145) mmol/L Potassium 2.8 L* (3.6-5.0) mmol/L Chloride 102.2 (98-107) mmol/L Carbon Dioxide 27 (22-30) mmol/L Anion Gap 13 mmol/L BUN 22 H (9-20) mg/dL Creatinine 6.3 H (0.8-1.3) mg/dL Estimated GFR 11 ml/min BUN/Creatinine Ratio 3 % Glucose 98 (75-100) mg/dL Calcium 7.9 L (8.4-10.2) mg/dL Magnesium 1.40 L (1.7-2.3) mg/dL Total Bilirubin 0.30 (0.1-1.2) mg/dL AST 19 (5-40) units/L ALT 8 (7-56) units/L Alkaline Phosphatase 213 H (35-129) units/L NT-Pro-B Natriuret Pep 1678 H (0-900) pg/mL Total Protein 5.7 L (6.3-8.2) g/dL Albumin 2.1 L (3.9-5) g/dL Albumin/Globulin Ratio 0.6 % - Radiology Data [facility] [address] [place] [address] XRay Report Signed Patient: MACK QUEVEDO JR MR#: [id number] : 1955 Acct:[id number] Age/Sex: 66 / M ADM Date: 04/10/22 Loc: ED Attending Dr: Ordering Physician: MOE EM NP Date of Service: 04/10/22 Procedure(s): XR chest routine 2V Accession Number(s): [id number] cc: MOE EM NP Fluoro Time In Minutes: CHEST 2 VIEWS INDICATION / CLINICAL INFORMATION: kristi leg swelling r/o CHF. COMPARISON: 06/07/2018 FINDINGS: SUPPORT DEVICES: None. HEART / MEDIASTINUM: No significant abnormality. LUNGS / PLEURA: No significant pulmonary or pleural abnormality. No pneumothorax. ADDITIONAL FINDINGS: No significant additional findings. IMPRESSION: 1. No acute findings. Signer Name: Raffaele Lundberg MD Signed: 04/10/2022 2:29 PM Workstation Name: [id number] Transcribed By: TL Dictated By: Raffaele Lundberg MD Electronically Authenticated By: Raffaele Lundberg MD Signed Date/Time: 04/10/221428 DD/ 28 TD/TT: - Medical Decision Making 66-year-old male that presents with hypokalemia and bilateral leg swelling. Patient is stable and was examined by me. Otherwise physical exam unremarkable. Exam does not consistent with acute CHF. Patient is notified of the lab resu lts and imaging results with no questions noted by the patient. Patient will be discharged with compression stockings. Patient was instructed to follow-up with a primary care and seismology teacher doctor in 2 days or if symptoms worsen and continue return to emergency room as soon as possible. At time of discharge, the patient does not seem toxic or ill in appearance. No acute signs of distress noted. Patient agrees to discharge treatment plan of care. No further questions noted by the patient. Critical care attestation.: If time is entered above; I have spent that time in minutes in the direct care of this critically ill patient, excluding procedure time. ED Disposition Clinical Impression: Hypokalemia, Localized swelling of both lower legs Disposition: HOME / SELF CARE / HOMELESS Is pt being admited?: No Does the pt Need Aspirin: No Condition: Stable Instructions: Hypokalemia Additional Instructions: Follow-up with a primary care and seismology teacher doctor in 2 days or if symptoms worsen and continue return to emergency room as soon as possible. Prescriptions: Compression Socks, X-Large [Compression Socks] 1 each MC DAILY #1 each Referrals: PRIMARY CARE, [Primary Care Provider] - 3-5 Days CHRISTINE BUCKNER MD [Staff Physician] - 04/12/22 JOHN PAUL CACERES MD [Staff Physician] - 04/12/22 Time of Disposition: 14:41
--- NOTE | 2022-04-10 14:33 | XRay Report ---
CHEST 2 VIEWS INDICATION / CLINICAL INFORMATION: kristi leg swelling r/o CHF. COMPARISON: 06/07/2018 FINDINGS: SUPPORT DEVICES: None. HEART / MEDIASTINUM: No significant abnormality. LUNGS / PLEURA: No significant pulmonary or pleural abnormality. No pneumothorax. ADDITIONAL FINDINGS: No significant additional findings. IMPRESSION: 1. No acute findings. Signer Name: Raffaele Lundberg MD Signed: 04/10/2022 2:29 PM Workstation Name: [id number]
[2022-04-10] MEDS ORDERED: MAGNESIUM OXIDE 400 MG TAB PO STA (14:43)
[2022-04-10 15:37] VITALS: BP 115/69
== END 2022-04-10 16:04 | disposition home or self-care (01) ==
LOC: ED 05:44
DX: M79.89 Other specified soft tissue disorders (principal); E87.6 Hypokalemia; I12.0 Hypertensive chronic kidney disease with stage 5 chronic kidney disease or end stage renal disease; N18.6 End stage renal disease; M19.90 Unspecified osteoarthritis, unspecified site; J45.909 Unspecified asthma, uncomplicated; Z79.899 Other long term (current) drug therapy
CPT/HCPCS: 36415; 71046; 80053; 83735; 83880; 85025; 99284